=== PATIENT | female | born 1985 | race Caucasian/White ===

== ENCOUNTER 2017-07-03 11:14 | Emergency (ER) | payer OTHER ==
[~2017-07-03] VITALS: Ht 160 cm; Wt 61.2 kg
[2017-07-03 11:17] VITALS: BP 117/84
== END 2017-07-03 12:04 | disposition home or self-care (01) ==
LOC: ER 11:14
DX: L72.0 Epidermal cyst (principal); N63.0 Unspecified lump in unspecified breast; F17.210 Nicotine dependence, cigarettes, uncomplicated

== ENCOUNTER 2017-09-09 11:01 | Emergency (ER) | payer OTHER ==
[~2017-09-09] VITALS: Ht 157.5 cm; Wt 63.5 kg
[2017-09-09 11:31] LABS: URINE BILIRUBIN NEGATIVE (Negative); URINE BLOOD NEGATIVE (Negative); URINE CLARITY CLEAR; URINE COLOR YELLOW; URINE GLUCOSE-RANDOM* NEGATIVE (Negative); URINE KETONES NEGATIVE (Negative); URINE NITRITE-REFLEX NEGATIVE (Negative); URINE PROTEIN (DIPSTICK) NEGATIVE (Negative); URINE SPECIFIC GRAVITY 1.025 (1.005-1.035); URINE UROBILINOGEN 0.2 E.U./dl (0.2-1.0)
[2017-09-09 11:34] LABS: URINE LEUKOCYTES-REFLEX 1+ (Negative)
[2017-09-09 11:42] LABS: ABSOLUTE NEUTROPHILS 6.3 thou/uL (1.4-8.2); BASOPHILS 0.4 % (0.0-2.0); EOSINOPHILS 1.5 % (0.0-3.0); HEMOGLOBIN 11.2 gm/dL (12.0-15.0); MCH 31.9 pg (26.0-34.0); MCHC 33.9 g/dL (28.0-37.0); MONOCYTES 6.9 % (1.0-8.0); PLATELET COUNT 330 thou/uL (150-400); POLYS 67.2 % (36.0-66.0); RBC 3.51 mil/uL (4.20-5.00); RDW 13.5 % (10.5-14.5); WBC 9.4 thou/uL (4.0-11.0)
[2017-09-09 11:49] LABS: CALCIUM 9.4 mg/dL (8.5-10.1); CREATININE 0.5 mg/dL (0.6-1.0); POTASSIUM 3.8 mmol/L (3.5-5.1)
[2017-09-09 11:49] LABS: BACTERIA-REFLEX >30 Many /HPF (None Seen); CASTS None Seen /LPF (None Seen); CRYSTALS None Seen /LPF (None Seen); SQUAMOUS >10 Many /LPF (0-3); URINE RBC 0-2 Rare /HPF (0-2); URINE WBC-REFLEX 6-15 Few /HPF (0-5)
[2017-09-09] MEDS ORDERED: KEFLEX500 M1 PO (12:56)
[2017-09-09 13:38] VITALS: BP 96/45
== END 2017-09-09 13:38 | disposition home or self-care (01) ==
LOC: ER 11:01
PROVIDERS: Physician Assistant
DX: O26.899 Other specified pregnancy related conditions, unspecified trimester (principal); Z3A.00 Weeks of gestation of pregnancy not specified; L03.113 Cellulitis of right upper limb; N39.0 Urinary tract infection, site not specified; R10.9 Unspecified abdominal pain